=== PATIENT | male | born 1990 | race Caucasian/White ===

== ENCOUNTER 2023-10-02 08:16 | Outpatient (CLI) | payer OTHER, SELFPAY ==
--- NOTE | 2023-10-02 10:30 | W.ANESCHARGE ---
Anesthesia Charges Start Date/Time Anesthesia Start Date: 10/02/23 Anesthesia Start Time: 09:55 Stop Date/Time Anesthesia Stop Date: 10/02/23 Anesthesia Stop Time: 10:28
--- NOTE | 2023-10-02 11:20 | W.ANESCHARGE ---
Anesthesia Charges Start Date/Time Anesthesia Start Date: 10/02/23 Anesthesia Start Time: 09:55 Stop Date/Time Anesthesia Stop Date: 10/02/23 Anesthesia Stop Time: 10:28
== END 2023-10-02 08:17 | disposition home or self-care (01) ==
LOC: OP CLINIC 08:17
PROVIDERS: PCP Family Medicine; Visit Provider Surgery
DX: Z12.11 Encounter for screening for malignant neoplasm of colon (principal); K63.5 Polyp of colon; Z83.719 Family history of colon polyps, unspecified
CPT/HCPCS: 00811; 45385; 88305; J2704

== ENCOUNTER 2024-03-19 05:32 | Emergency (ER) | payer OTHER, SELFPAY ==
[2024-03-19 05:39] VITALS: BP 129/81; PULSE 76; RESP 18; TEMP 36.6; O2SAT 100; BMI 25.8
--- NOTE | 2024-03-19 06:00 | ED.EPISTAXIS ---
History of Present Illness General Date Seen: 03/19/24 Chief Complaint: Epistaxis/Nosebleed Stated Complaint: Nose bleed post surgery Time Seen by Provider: 03/19/24 05:46 Source: patient Mode of arrival: ambulatory Limitations: no limitations History of Present Illness HPI Narrative: Patient is a 33-year-old male who underwent septoplasty by Dr. Gus Santiago on 03/16/2024. He was told that after 24 hours he can begin doing a sinus rinse which he did this afternoon. His congestion seemed better for the remainder of the day he went to bed without difficulty. He woke at 3:00 a.m. with some bleeding out the right nostril around his splint. On this persisted for about 3 hours a came into the emergency department after speaking to the [facility] line. 90% on the blood is coming out anteriorly but there is a small amount going down the back of his throat. The bleeding has not been perfuse. Related Data Home Medications ?Medication ?Instructions ?Recorded ?Confirmed No Known Home Medications 02/26/24 02/26/24 Allergies Allergy/AdvReac Type Severity Reaction Status Date / Time Penicillins Allergy Unknown Unknown Verified 02/26/24 14:16 Review of Systems Narrative: Review of systems is outlined above otherwise noted to be negative. [facility] Medical History (Updated 03/19/24 @ 07:09 by Antwon Murray MD) Plantar fasciitis, bilateral ?M72.2 - Plantar fascial fibromatosis (ICD-10) Depression ?F32.A - Depression, unspecified (ICD-10) History of Lyme disease (2018) ?Z86.19 - Personal history of other infectious and parasitic diseases (ICD-10) Surgical History (Updated 03/19/24 @ 05:49 by Antwon Murray MD) Hx of nasal septoplasty ?Z98.890 - Other specified postprocedural states (ICD-10) Hx of appendectomy ?Z90.49 - Acquired absence of other specified parts of digestive tract (ICD-10) Family History (Updated 08/07/23 @ 10:55 by Nu Dunn) Other Family history of colonic polyps Social History (Updated 03/19/24 @ 05:50 by Antwon Murray MD) Narrative: , 1 kid What is your current living situation?: I presently have a place to live Problems where you live: no known problems In the past 12 months, utilities in danger of being shut off: no In past 12 months, lack of transportation kept you from medical appts, meetings, work, or getting things needed for daily living: no In the past 12 mos, have been you worried that your food would run out before you had money to buy more?: never true In the past 12 mos, the food you bought just didn't last and you didn't have money to buy more?: never true Smoking Status: Never smoker Do you use any of these nicotine containing products: None Second hand tobacco smoke exposure: No How often do you have a drink containing alcohol: monthly or less How often do you have six or more drinks on one occasion: Never AUDIT-C Alcohol total score: 1 Non-prescribed substance use: denies use How often does anyone, including family, friends and others, physically hurt you: never How often does anyone, including family, friends and others, insult or talk down to you: never How often does anyone, including family, friends and others, threaten you with harm: never How often does anyone, including family, friends and others, scream or curse at you: never Little interest or pleasure in doing things: not at all Feeling down, depressed, or hopeless: not at all service: No Exam Narrative: Exam Narrative: Vitals noted. HEENT: Conjunctiva clear. Tympanic membranes are pearly white bilaterally. He has a nasal splint in place on the right side. There is dried blood and clot present with a slow steady trickle of blood from that side. No bleeding from the left side. Posterior pharynx is clear without erythema or exudate. No bleeding down the back of the throat. Neck is supple without adenopathy. Lungs: Clear to auscultation in all meza. No wheezes, rales, rhonchi. Heart: Regular rate and rhythm without murmur. Extremities: No cyanosis or edema. Good distal pulses. Skin: No abnormalities noted of the exposed skin. Neurologic: Awake, alert, fully oriented. Neurologic exam is nonfocal. Const: Vital Signs, click to edit/add: Vital Signs - 24 hr 03/19/ 05:39 Temperature 97.9 F Pulse Rate [Pulse Oximeter] 76 Respiratory Rate 18 Blood Pressure [Le ft Upper Arm] 129/81 Pulse Oximetry 100 Oxygen Delivery Me thod Room Air Course Course ED Course: Patient seen and examined. He is in no distress. He has continuous bleeding as noted above. We paged the on-call ENT for Dr. Santiago at 6:05 a.m. and received a call back at 7:00 a.m.. A plan was made to have the clinic contact the patient directly to arrange for follow-up this morning. He is comfortable with this plan. Vital Signs Vital signs: Initial Vital Signs Temperature 97.9 F 03/19/24 05:39 Temperature Source Temporal Artery Scan 03/19/24 05:39 Pulse Rate 76 03/19/24 05:39 Pulse Rhythm Regular 03/19/24 05:39 Respiratory Rate 18 03/19/24 05:39 Blood Pressure 129/81 03/19/24 05:39 Blood Pressure Mean 97 03/19/24 05:39 Blood Pressure Position Sitting 03/19/24 05:39 Pulse Oximetry 100 03/19/24 05:39 Oxygen Delivery Method Room Air 03/19/24 05:39 Vital Signs Temperature 97.9 F 03/19/24 05:39 Pulse Rate 76 03/19/24 05:39 Respiratory Rate 18 03/19/24 05:39 Blood Pressure 129/81 03/19/24 05:39 Pulse Oximetry 100 03/19/24 05:39 Oxygen Delivery Method Room Air 03/19/24 05:39 Temperature 97.9 F 03/19/24 05:39 Pulse Rate 76 03/19/24 05:39 Respiratory Rate 18 03/19/24 05:39 Blood Pressure 129/81 03/19/24 05:39 Pulse Oximetry 100 03/19/24 05:39 Oxygen Delivery Method Room Air 03/19/24 05:39 Discharge Plan Discharge Clinical Impression: Epistaxis Patient Disposition: Home, Self-Care Condition: Stable Additional Instructions: Follow-up with ENT this morning as arranged. The ENT clinic will be calling you directly. No further sinus rinse until seen by ENT. Prescriptions: No Action No Known Home Medications Follow Up/Referrals: Vini Barnes MD [Primary Care Provider] - Stand Alone Forms: MyHealth Info Instructions
--- NOTE | 2024-03-19 06:14 | PC.NURSE ---
Replaced mustache dressing, pt has saturated one dressing since being in ED. Pt c/o feeling a little woozy, c/o pressure in right nare.
--- OUTSIDE RECORDS SUMMARY | 2024-03-19 06:44 | XMS_ITS | Encounter Summary ---
Author Organization [facility] Address [address] [place] [id number] Care Team Providers Care Surgical Instruments Inspector Name Role Phone Unavailable Primary Care Provider Unavailabl e Reason for Visit * Procedure/Equipment (Routine) - Incomplete Specialty Diagnoses / Procedures Referred By Regina t Referred To Contact Diagnoses Acquired deflected nasal septum Acquired deformity of nose Nasal obstruction Procedures Case Request OR - ENT Surgery: SEPTORHINOPLASTY Calli Wilson, JOHNNY [address] [place] [address] Referral ID Status Reason Start Date Expiration Date V isits Requested Visits Authorized [id number] Incomplete 01/14/2024 04/14/2025 1 1 Encounter Details Date Type Department Care Team (Late st Contact Info) Description 03/16/2024 7:20 AM CDT - 03/16/2024 11:45 AM CDT Surgery [facility] [address] [place], [place] [id number] Mayank Santiago MD [address] [place] [address] SEPTORHINOPLASTY Social History Tobacco Use Types Packs/Day Years Used Date Smoking Tobacco: Never Smokeless Tobacco: Never Sex and Gender Information Value Date Recorded Sex Assigned at Not on file Gender Identity Not on file Sexual Orientation Not on file documented as of this encounter Last Filed Vital Signs Vital Sign Reading Time Taken Comments Blood Pressure 118/78 03/16/2024 5:40 AM CDT Pulse 64 03/16/2024 5:40 AM CDT Temperature 36.5 ??C (97.7 ??F) 03/16/2024 5:40 AM CD T Respiratory Rate 18 03/16/2024 5:40 AM CDT Oxygen Saturation 97% 03/16/2024 5:40 AM CDT Inhaled Oxygen Concentration - - Weight 83.1 kg (183 lb 3.2 oz) 03/16/2024 6:05 A M CDT Height - - Body Mass Index 25.55 01/13/2024 3:25 PM CDT documented in this encounter Discharge Instructions * Discharge Instructions* Stephen Hennessy RN - 03/16/2024 7:42 AM CDT CONTACT INFORMATION If it is after hours call the Careline at [phone]. [facility]: Please contact your clinic during regular business hours or in case of an Emergency dial 911. ENT Clinic, , ANESTHESIA Today you received General Sedation: Rest in bed the day of surgery, then advance to normal activity the next day. Let's talk about what to expect after receiving anesthesia. After anesthesia, reactions are slow and some patients may become lightheaded or dizzy. The following safety precautions are recommended: Don't drink alcoholic beverages. Don't use any other drugs than those ordered by your physician. Don't drive a car or any other vehicle. Don't work with machinery or power tools. Be careful walking. Be extra careful walking up and down stairs. DANGER SIGNALS I should call my clinic if I experience any of the following: Temperature higher than 101 degrees Fahrenheit Redness that has spread Persistent bleeding Green/yellow/infected, foul smelling drainage from incision site Reaction to new medications Severe pain Swelling * Discharge Instr - Non RX Meds* Dorian Andersen RN - 03/16/2024 1:30 PM CDT You may repeat tylenol at 7:20pm documented in this encounter Medications at Time of Discharge Medication Sig Dispensed Refills Start Date End Date clindamycin (CLEOCIN) 300 MG capsule Take 1 Capsule (300 mg) by mouth three times a day. 30 Capsule 03/16/2024 oxyCODONE (ROXICODONE) 5 MG immediate release tablet Take 1 Tablet (5 mg) by mouth every 4 hours as needed for Pain for up to 15 doses. 15 Tablet 03/16/2024 documented as of this encounter Progress Notes * Dorian Andersen RN - 03/16/2024 5:32 AM CDT I completed a full assessment and assessments as ordered and per policy on this patient during my work shift. Reassessments completed during my work shift are unchanged unless documented. documented in this encounter Procedure Notes * Brian Clemens MD - 03/16/2024 5:32 AM CDT [facility] Brief Operative Progress Note Surgery Date: 03/16/2024 Surgeons and Role: * Mayank Santiago MD - Primary Visitor: Other - See Comment - brian clemens - resident - Comments: ent resident Pre-op Diagnosis: * Acquired deflected 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.2] * 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] * Nasal obstruction [J34.89] Post-op Diagnosis: * Acquired deflected 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.2] * 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] * Nasal obstruction [J34.89] Procedures with associated lateralities: Procedure(s) (LRB): SEPTORHINOPLASTY (N/A) EBL: 20cc Specimens: * No specimens in log * Complications / Findings: * Mayank Santiago MD - 03/16/2024 12:00 AM CDT NAME: DANIEL MAYNARD CSN: [id number] OPERATIVE REPORT DATE OF SURGERY: 03/16/2024 : 1990 SURGEON: MAYANK SANTIAGO MD PREOPERATIVE DIAGNOSIS: Posttraumatic nasal and septal deformities with nasal airway obstruction inareas of secondary compensatory turbinate hypertrophy. POSTOPERATIVE DIAGNOSIS: Posttraumatic nasal and septal deformities with nasal airway obstruction in areas of secondary compensatory turbinate hypertrophy. OPERATIVE PROCEDURE: Complex open septorhinoplasty with right spreading splinting graft, septal extension graft, crushed cartilage radix graft, crushed cartilage tip graft, bilateral medial and lateral osteotomies with right intermediate osteotomy, bilateral inferior turbinate cautery, and outfracture. INDICATIONS: Patient had fallen as a child and had an unrepaired nasal fracture and he had chronic fixed nasal obstruction. Medical therapy had failed, which was not surprising given the magnitude ofhis deformities. In the accident, the nose had been fractured and the septum multiply fractured. The vault of the nose was deviated to the left with collapse and a fracture line not only in the nasofacial sulcus on the dorsum, but an intermediate fracture on the right as well. The caudal septum wasmarkedly deflected to the left with the septum in contact with the undersurface of the left mid vault and the head of the inferior turbinate. There was enough deformity that it was impossible to see the posterior recesses of the nose, but due to the septal deformity on the right side, the internal nasal valve was collapsed by the upper lateral cartilage following in along with the nasal bone. There was a large right inferior septal spur as well. The turbinates had areas of hypertrophy in areas where the septum bowed away from the turbinates. This was true anteriorly on the right and posteriorly on the left. The risks and benefits of surgery had been discussed and the patient wished to proceed. Special circumstances, this case is unusual in that septorhinoplasty does not normally include septal extension graft to control the posture of the nasal tip and a spreading splinting graft on theright side to correct some of the severe dorsal nasal septal deviation. These grafts required additional time, skill, and complex healing. TECHNIQUE: General anesthesia was established with an endotracheal tube in place. 10 mL of 2% Xylocaine with 1:100,000 epinephrine were injected as a field block about the nose. 4% cotton pledgets were placed intranasally. Ointment was placed in each conjunctival fornix and Tegaderm applied to the lids. 600 mg of Cleocin had been given intravenously. The patient was then prepped and draped. The nose was approached with a standard external rhinoplasty incision and combined marginal incisions with a chevron incision on the columella. Soft tissue was elevated just superficial to the perichondrium of the lower lateral cartilage complex. The intermediate crura domes and lateral crura were exposed. Dissection was carried out in the supraperichondrial plane over the mid vault and then subperiosteal plane over the anterior 50% of the bony vault. There were irregularities in the bony vault from the previous fracture. Traction was then applied to the intermediate crura and interdomal ligaments were divided. The caudal septum was exposed. Bilateral anterior tunnels were created. Each inferior turbinate was then treated with 3 passes of intramucosal bipolar cautery on setting of 15 and the turbinates were then outfractured with a Boies elevator. The upper lateral cartilages were released from the septum. On the right side, a fading right medial osteotomy was carried out followed by a posta ge stamp inside-out right intermediate osteotomy and then a right lateral internal osteotomy with aguarded osteotome. This mobilized the right nasal sidewall. A generous 12 mm dorsal and caudal strut of septum was preserved. Cartilage posteriorly was harvested including the spur on the right. Bony irregularities were trimmed as well. Because of the fracture and the spur on the right side after resection of the irregularities in order to provide adequate stability of the posterior septal angle,two #4-0 PDS sutures were placed securing the posterior septal angle of the septal cartilage to theperiosteum of the anterior nasal spine. This provided a very stable dorsal and caudal cartilaginousframe. A medial osteotomy was then performed to place the bony septum in the midline and a left fading medial osteotomy was performed. This was then followed by an internal lateral left osteotomy, mobilizing the left nasal sidewall, closing the open roof, and positioning the vault in the midline. The radix area still had a tendency to drift to the left, and therefore, a percutaneous 2 mm osteotomy was carried out at the radix with division of the dorsal nasal septum more formally at the nasal radix. The dorsum now rested comfortably in the midline with little tendency for deviation. Cartilagegrafts were then fashioned and a 37 mm x 5 mm x 2 mm splinting high risk case manager graft was carved and placedon the right side of the septum and secured with multiple simple and mattress 5-0 PDS sutures. Clocking sutures of 5-0 PDS were then placed through the dorsal septum through the splinting high risk case manager graft and engaged the dorsal edges of the upper lateral cartilage slightly overcorrecting the dorsal line. Left upper lateral cartilage dorsal edge was then reattached to the dorsal septum with 5-0 PDS sutures. A septal extension graft measuring 28 mm x 7 mm was placed on the left side of the septum and stabilized with mattress and simple 5-0 PDS sutures. This extended the anterior septal angle appro ximately 6 mm inferiorly and 5 mm anteriorly. An interdomal suture was then placed, traction applied to the tip complex and the intermediate and medial crura were fixated to the septal extension graft with through and through 4-0 chromic sutures. Mucosa of the septum was then quilted with a running4-0 Rapide suture. An ovoid 6 x 7 mm crushed cartilage tip graft was placed and temporarily stabilized with 30-gauge needle. It was then secured with interrupted 6-0 Monocryl sutures. A graft was placed to provide appropriate tip contour and to minimize risk of a bossa formation postoperatively. Approximately an 8 mm x 7 mm crushed cartilage graft was placed over the bony vault in the radix to mask irregularities from his previous fractures. The right nasal bone with a triple osteotomy had someinstability, and therefore, a segment of Merocel folded measuring approximately 18 mm x 5 mm was placed. It was coated with Bactroban and secured with 5-0 PDS sutures at its upper and lower ends and the sutures were brought out percutaneously through the nasal dorsum and then later Steri- Strips to the skin to provide stability. Transcolumellar incision was closed with 6-0 Monocryl. Vestibular lining was closed with 4-0 chromic sutures. Dailey splints coated with Bactroban were placed intranasally and stabilized with a transseptal 3-0 nylon suture. Mastisol, Steri-Strips, and Aquaplast were applied to the nasal dorsum. Merocel was injected with 3 mL of 1% xylocaine with 1:100,000 epinephrine.The nose now had a symmetric posture. Aquaplast was applied. 5 mL of 0.5% Marcaine with 1:100,000 epinephrine was injected as a field block about the nose for postoperative pain relief. An oral airway was then placed and the pharynx suctioned and a suction catheter placed into the stomach to removeeven gastric contents with bile. ESTIMATED BLOOD LOSS: 50 cc. CO-SURGEON: Dr. Brian Clemens. MAYANK SANTIAGO MD PAH/AQS /[id number] documented in this encounter Miscellaneous Notes * OR Nursing - Leticia aHnley RN - 03/16/2024 5:32 AM CDT Bladder scan pt at 1202 for >788ml. Attempted to straight cath patient, unable to insert catheter despite repositioning. Upon removing catheter blood was noted inside it. JLUIS [place] states pt will be able to use urinal in PACU. PACU notified. Leticia Hanley RN 03/16/2024, 1:27 PM documented in this encounter Plan of Treatment Upcoming Encounters Date Type Department Care Team (Late st Contact Info) Description 03/23/2024 3:15 PM CDT Appointment [facility] [address] [place] [address]. [place] [address] Mayank Santiago MD [address] [place] [phone] documented as of this encounter Procedures Procedure Name Priority Date/Time Associated Diagnosis Comments SEPTORHINOPLASTY 03/16/2024 7:14 AM CDT Acquired deflected nasal septum Acquired deformity of nose Nasal obstruction documented in this encounter Visit Diagnoses Diagnosis Pain- Primary Generalized pain Acquired deflected nasal septum Deviated nasal septum Acquired deformity of nose Nasal obstruction Other diseases of nasal cavity and sinuses Acquired deflected nasal septum Deviated nasal septum Acquired deformity of nose Nasal obstruction Other diseases of nasal cavity and sinuses documented in this encounter Admitting Diagnoses Diagnosis Acquired deflected nasal septum Deviated nasal septum Acquired deformity of nose Nasal obstruction Other diseases of nasal cavity and sinuses documented in this encounter Administered Medications Inactive Administered Medications - up to 3 most recent administrations Medication Order MAR Action Action Date Dose Rate Site BUPivacaine-EPINEPHrine PF (SENSORCAINE) 0.5% -[id number] injection ONCE PRN, Starting on Fri03/16/24 at 1209, Until Fri03/16/24 at 1552, Intra-op Given 03/16/2024 12:09 PM CDT 5 mL cocaine 40 MG/ML topical solution ONCE PRN, Starting on Fri03/16/24 at 0800, Intra-op Given 03/16/2024 8:00 AM CDT 160 mg Other (Comment) gentamicin (GARAMYCIN) 80 mg in sodium chloride for irrigation 500 mL Irrigation ONCE PRN, Starting on Fri03/16/24 at 0803, Intra-op Given 03/16/2024 8:03 AM CDT 104 mL Other (Comment) hydrOXYzine pamoate (VISTARIL) capsule 25-50 mg 25-50 mg, Oral, ONCE PRN, Other, Pain, Starting on Fri03/16/24 at 0742, Until Fri03/16/24 at 1318, For 1 dose, May be used with other medications as adjunct for pain. 25 mg PO once PRN based on patient pain scale rating for mild to moderate pain (1 to 5) 50 mg PO once PRN based on patient pain scale rating for moderate to severe pain (6 to 10), PACU (only) Given 03/16/2024 1:18 PM CDT 25 mg lactated ringers infusion Intravenous, at 30 mL/hr, CONTINUOUS, Starting on Fri03/16/24 at 0600, Pre-op Started 03/16/2024 10:19 AM CDT Restarted 03/16/2024 7:22 AM CDT Started 03/16/2024 6:14 AM CDT 30 mL/hr lidocaine-epinephrine 1 %-1:[id number] injection ONCE PRN, Starting on Fri03/16/24 at 1005, Until Fri03/16/24 at 1552, Intra-op Given 03/16/2024 11:47 AM CDT 3 mL Other (Comment) Given 03/16/2024 10:05 AM CDT 4 mL O ther (Comment) lidocaine-epinephrine 2 %-1:[id number] injection ONCE PRN, Starting on Fri03/16/24 at 0801, Until Fri03/16/24 at 1552, Intra-op Given 03/16/2024 8:01 AM CDT 10.2 mL Other (Comment) mupirocin (BACTROBAN) 2 % ointment ONCE PRN, Starting on Fri03/16/24 at 1058, Intra-op Given 03/16/2024 10:58 AM CDT 1 Inch Other (Comment) oxyCODONE-acetaminophen (PERCOCET) 5-325 MG per tablet 1-2 Tablet 1-2 Tablet, Oral, ONCE PRN, Pain, Starting on Fri03/16/24 at 0742, Until Fri03/16/24 at 1318, For 1 dose, Do not give within 4 hours of other acetaminophen containing products. If multiple oral opioids are ordered, please consult provider for order of use. One tablet PO once PRN based on patient pain scale rating for mild to moderate pain (1 to 5) Two tablets PO once PRN based on patient pain scale rating for moderate to severe pain (6 to 10), PACU (only) Given 03/16/2024 1:18 PM CDT 1 Tablet oxymetazoline (AFRIN) 0.05 % nasal spray ONCE PRN, Starting on Fri03/16/24 at 0936, Until Fri03/16/24 at 1552, Intra-op Given 03/16/2024 9:36 AM CDT 30 mL Other (Comment) documented in this encounter
--- OUTSIDE RECORDS SUMMARY | 2024-03-19 06:44 | XMS_ITS | Encounter Summary ---
Author Organization [facility] Address [address], [place] [address] Care Team Providers Care Aerospace Physiological Technician Name Role Phone Unavailable Primary Care Provider Unavailabl e Encounter Details Date Type Department Care Team ([facility] st Contact Info) Description 03/16/2024 7:22 AM CDT Anesthesia Event [facility] [address] [place], [place] [id number] Santino Morton MD [address] [place] [address] Ryland Puente MD [address] [place] [address] Anesthesia Record Procedure Summary Procedure Name Responsible Anesthesiologist Anesthesia Start Time Anesthesia Stop Time SEPTORHINOPLASTY Santino Morton MD 03/16/24 0722 0 03/16/24 1225 Events Date Time Event Comment 03/16/2024 0722 0722 An Start 0724 An Start Data 0729 An Induction 0732 An Intubation 0740 An Local Anesthetic By Surge on 1147 An Local Anesthetic By Surge on 1155 An Local Anesthetic By Surge on 1221 An Extubation Purposeful mov ement with spontaneous respirations and adequate air exchange. Suctioned and ETT removed. Transferred with oxygen to recovery. 1221 An Oxygen Mask Spontaneous r espirations with adequate air exchange. 1221 an stop data 1225 Care Handoff Note I discusse d with the receiving nurse and we: 1) Identified the patient, crooks family member(s) or patient surrogate 2) Identified the responsible practitioner 3) Reviewed the pertinent medical history 4) Discussed the surgical/procedure course 5) Reviewed intra-op anesthesia management and issues during anesthesia 6) Set expectations for the post-procedure period 7) Allowed opportunity for questions and acknowledgement of understanding of report Electronically signed by David Guillory APRN, CRNA [address] [facility] Name Total midazolam 2 mg/2 mL injection (aka VERSE D) 2 mg FENTanyl injection (aka SUBLIMAZE) 2 mL lidocaine 1% PF injection aka (XYLOCAINE ) 30 mg propofol 10 mg/mL for procedural sedatio n (aka diPRIvan) 200 mg propofol 10 mg/mL for procedural sedatio n (aka diPRIvan) 3,439.66 mg rocuronium injection (aka ZEMURON) 100 m g ondansetron injection (aka ZOFRAN) 4 mg dexamethasone 4 mg/mL injection (aka DEC ADRON) 4 mg carboxymethylcellulose 1% eye drops (aka CELLUVISC) 2 Drop clindamycin (CLEOCIN) 600 mg in dextrose 5% 50 mL premade IVPB 600 mg HYDROmorphone 1 mg/mL injection (DILAUDI D) 1 mg sugammadex injection 200mg/2mL (BRIDION) 200 mg lactated ringers infusion 1,300 mL * Agents Name O2 N2O Air * Blood No blood administrations on file. Lines, Drains, and Airways Type Details Placement Removal Peripheral IV Placement Date: 03/16/24; Placement Time: 06; Pre-existing: No; Inserted by?: RN; Size (Gauge): 20 G; Orientation: Left; Site Prep: ChloraPrep; Local Anesthetic: None; Insertion attempts: 1; Blood draw with insertion?: no; Patient Tolerance: Tolerated well; Removal Date: 03/16/24; Removal Time: 1345; Removal Reason: Per Protocol; Catheter Tip: Intact 03/16/24 0614 by Jennifer Man RN 03/16/24 1345 by Dorian Andersen, RN ETT Placement Date: 03/16/24; Placement Time: 0732; Placed By: JLUIS; Induction Type: Pre-O2, IV; Masking: Easy; ETT Type: Oral DAVID ETT; Orientation: Center; Size (mm): 8.0; Depth Secured (cm): 22 cm; Cuffed: Cuffed; Cuff Volume: 6 mL; Intubation Method: DL; Cormack_Lehane Glottic Grade: Grade 1; Glottic View: Cords Open, Cords Clear; Blade: Yusuf; Blade Size: 2; Insertion attempts: 1; Difficulty: Atraumatic, Easy; Adjunct Equipment: Stylet; Placement Verification: BBSE, Positive EtCO2, auscultation, capnometry; Teeth and Lips Unchanged: Unchanged; Emergence: Following commands, Opening eyes, Spontaneous respirations, Adequate air exchange; Suctioned: Oropharnyx, Stomach; Removal Date: 03/16/24; Removal Time: 122; Extubation By: ALUMINUM MOLDER; Transferred with Oxygen: Yes 03/16/24 0732 by David Guillory APRN, CRNA 03/16/24 1221 by David Guillory APRN, CRNA Incision/Surgical Site 03/16/24; 0805; N o; Nose; 03/16/24; 1345 03/16/24 0805 by Leticia Hanley RN 03/16/24 1345 by Dorian Andersen RN documented in this encounter Social History Tobacco Use Types Packs/Day Years Used Date Smoking Tobacco: Never Smokeless Tobacco: Never Sex and Gender Information Value Date Recorded Sex Assigned at Not on file Gender Identity Not on file Sexual Orientation Not on file documented as of this encounter Miscellaneous Notes * Anesthesia Postprocedure Evaluation - Santino Morton MD - 03/16/2024 12:32 PM CDT [facility] Anesthesia Post-op Note Patient: Srinivas Spear Post-Op Diagnosis: Pre-Op Diagnosis Codes: * Acquired deflected 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.2] * 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] * Nasal obstruction [J34.89] Procedure Performed: Procedure(s): SEPTORHINOPLASTY - Wound Class: 2 CLEAN-CONTAMINATED Anesthesia Type: General Post-op vital signs: Vitals Value Taken Time BP 114/67 03/16/24 1225 Temp 97.3 ??F (36.3 ??C) 03/16/24 1225 Pulse 85 03/16/24 1225 Resp 12 03/16/24 1225 SpO2 97 % 03/16/24 1225 Pain Score: Preferred Pain Scale: FACES (Brambila-Ross FACES Pain Rating Scale) (0- 10) Pain Rating: Rest: 0 (0-10) Pain Rating: Activity: 0 Post-op assessment: Patient location: PACU Airway Status: Patent Cardiovascular function: Satisfactory Hydration status: Satisfactory PONV: None Level of Consciousness: Awake Fully Participates Postop Assessment: Patient tolerated procedure well. Electronically signed by: Santino Morton MD 03/16/2024 12:32 PM * Anesthesia Preprocedure Evaluation - Santino Morton MD - 03/16/2024 6:17 AM CDT [facility] Anesthesia Pre-op Evaluation Procedure: SEPTORHINOPLASTY, Bilateral HPI: 33 y.o. old male. 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 Patient Active Problem List Diagnosis Acquired deflected nasal septum Acquired deformity of nose Nasal obstruction No past surgical history on file. No current outpatient medications on file as of 01/14/2024. Facility-Administered Medications as of 01/14/2024 Medication Dose Route Frequency ceFAZolin (ANCEF) 2 g in sodium chloride 0.9 % 50 mL IVPB ADS 2 g Intravenous Once (Non-Scheduled) lactated ringers infusion Intravenous Continuous Labs: No results found for: SODIUM, K, CHLORIDE, CO2, BUN, CREATININE, GLUCOSE No results found for: WBC, HGB, HCT, PLTS No results found for: INR Blood Bank: No results found for: ABO, ABSCR EKG: No results found for this or any previous visit. Physical Exam: BP 118/78 Pulse 64 Temp 97.7 ??F (36.5 ??C) (Temporal Artery) Resp 18 SpO2 97% Assessment/Plan: Review of Systems Patient does not have GERD. Patient is not a current smoker. The patient denies alcohol use. Patient denies any recent URI. History of PONV: No. History of motion sickness: No. Patient denies any personal or family history of anesthesia complications. NPO Status: Acceptable. Exam Mental Status: Alert and oriented. Mallampati score: II (Two). Mouth opening: Normal Thyromental Distance: > 3 finger breadths and Normal Neck Extension: Full Neck Circumference > 40 cm?: No Previous airway assessment: No prior intubations. Current airway assessment:Normal Dentition: Age appropriate. Cardiac Exam: Regular rate and rhythm. Respiratory Exam: Breath sounds clear to auscultation Assessment ASA Status: 2 . Plan Anesthesia type: General and ETT Induction: Propofol Maintenance: TIVA Postoperative pain management: Plan for postoperative opioid use PONV Risk Score Adult: 2 PONV Prophylaxis (planned): Ondansetron and Decadron Anesthetic plan, risks, benefits and alternatives discussed with the patient who agrees to the anesthesia treatment plan. The patient and/or their customer account representative were notified about the potential risks of damage to the lips, teeth, dental devices, mouth and airway. H&P Reviewed and Patient examined, no change observed IV access Antibiotics per surgery Electronically signed by: Santino Morton MD 03/16/2024 6:17 AM documented in this encounter Plan of Treatment Upcoming Encounters Date Type Department Care Team (Late st Contact Info) Description 03/23/2024 3:15 PM CDT Appointment [facility] [address] [place] [address]. [place] [address] Gus Santiago MD [address] [place] [phone] documented as of this encounter Visit Diagnoses Not on filedocumented in this encounter Administered Medications Inactive Administered Medications - up to 3 most recent administrations Medication Order MAR Action Action Date Dose Rate Site carboxymethylcellulose PF (CELLUVISC) 1 % ophthalmic gel Both Eyes, Starting on Fri03/16/24 at 0730, Until Fri03/16/24 at 1225 Given 03/16/2024 7:30 AM CDT 2 Drops clindamycin (CLEOCIN) 600 mg in dextrose 5% 50 mL premade IVPB 600 mg, Intravenous, Administer over 30 Minutes, ONCE, On Fri03/16/24 at 0715, For 1 dose, Pre-op Given 03/16/2024 7:27 AM CDT 600 mg dexAMETHasone (DECADRON) injection Intravenous, Starting on Fri03/16/24 at 0737, Until Fri03/16/24 at 1225 Given 03/16/2024 7:37 AM CDT 4 mg fentaNYL (SUBLIMAZE) injection Intravenous, Starting on Fri03/16/24 at 0728, Until Fri03/16/24 at 1225 Given 03/16/2024 7:28 AM CDT 2 mL HYDROmorphone (DILAUDID) injection Intravenous, Starting on Fri03/16/24 at 0743, Until Fri03/16/24 at 1225 Given 03/16/2024 9:44 AM CDT 0.5 mg Given 03/16/2024 7:43 AM CDT 0.5 mg lactated ringers infusion Intravenous, at 30 mL/hr, CONTINUOUS, Starting on Fri03/16/24 at 0600, Pre-op Started 03/16/2024 10:19 AM CDT Restarted 03/16/2024 7:22 AM CDT Started 03/16/2024 6:14 AM CDT 30 mL/hr lidocaine PF (XYLOCAINE) 1 % injection Intravenous, Starting on Fri03/16/24 at 0729 Given 03/16/2024 7:29 AM CDT 30 mg midazolam (VERSED) injection Intravenous, Starting on Fri03/16/24 at 0723, Until Fri03/16/24 at 1225 Given 03/16/2024 7:23 AM CDT 2 mg ondansetron (ZOFRAN) injection Intravenous, Starting on Fri03/16/24 at 1121, Until Fri03/16/24 at 1225 Given 03/16/2024 11:21 AM CDT 4 mg propofol (DIPRIVAN) 10 mg/mL injection Intravenous, Starting on Fri03/16/24 at 0729, Until Fri03/16/24 at 1225 Given 03/16/2024 7:29 AM CDT 200 mg propofol (DIPRIVAN) 10 mg/mL injection Intravenous, Starting on Fri03/16/24 at 0729, Until Fri03/16/24 at 1225 Rate/Dose Change 03/16/2024 11:36 AM CDT 120 mcg/kg/min 56.88 mL/hr Rate/Dose Change 03/16/2024 11:08 AM CDT 150 mcg/kg/min 71 .1 mL/hr Rate/Dose Change 03/16/2024 9:44 AM CDT 160 mcg/kg/min 75. 84 mL/hr rocuronium (ZEMURON) injection Intravenous, Starting on Fri03/16/24 at 0730, Until Fri03/16/24 at 1225 Given 03/16/2024 8:43 AM CDT 30 mg Given 03/16/2024 8:16 AM CDT 20 mg Given 03/16/2024 7:30 AM CDT 50 mg sugammadex (BRIDION) injection Intravenous, Starting on Fri03/16/24 at 1205, Until Fri03/16/24 at 1225 Given 03/16/2024 12:05 PM CDT 200 mg documented in this encounter
--- OUTSIDE RECORDS SUMMARY | 2024-03-19 06:44 | XMS_ITS | Encounter Summary ---
Author Organization [facility] Address [address] [place] [address] Care Team Providers Care Advanced Practice Nurse Name Role Phone Unavailable Primary Care Provider Unavailabl e Reason for Visit * Procedure/Equipment (Routine) - Incomplete Specialty Diagnoses / Procedures Referred By Regina t Referred To Contact Diagnoses Acquired deflected nasal septum Acquired deformity of nose Nasal obstruction Procedures Case Request OR - ENT Surgery: SEPTORHINOPLASTY Calli Wilson, [facility] [address] [place] [address] Referral ID Status Reason Start Date Expiration Date V isits Requested Visits Authorized [id number] Incomplete 01/14/2024 04/14/2025 1 1 Encounter Details Date Type Department Care Team (Latest Contact Info) Description 03/16/2024 5:32 AM CDT - 03/16/2024 1:52 PM CDT Hospital Encounter [facility] [address] [place] [address] Gus Santiago MD [address] [place] [address] Pain (Primary Dx) Discharge Disposition: Home Social History Tobacco Use Types Packs/Day Years Used Date Smoking Tobacco: Never Smokeless Tobacco: Never Sex and Gender Information Value Date Recorded Sex Assigned at Not on file Gender Identity Not on file Sexual Orientation Not on file documented as of this encounter Last Filed Vital Signs Vital Sign Reading Time Taken Comments Blood Pressure 116/71 03/16/2024 1:30 PM CDT Pulse 71 03/16/2024 1:30 PM CDT Temperature 36.9 ??C (98.4 ??F) 03/16/2024 1:02 PM CD T Respiratory Rate 17 03/16/2024 1:30 PM CDT Oxygen Saturation 96% 03/16/2024 1:30 PM CDT Inhaled Oxygen Concentration - - Weight 83.1 kg (183 lb 3.2 oz) 03/16/2024 6:05 A M CDT Height - - Body Mass Index 25.55 01/13/2024 3:25 PM CDT documented in this encounter Discharge Instructions * Discharge Instructions* Stephen Hennessy RN - 03/16/2024 7:42 AM CDT CONTACT INFORMATION If it is after hours call the Careline at [phone]. [facility]: Please contact your clinic [...] Clemens MD - 03/16/2024 5:32 AM CDT [facility] Brief Operative Progress Note Surgery Date: 03/16/2024 Surgeons and Role: * Gus Santiago MD - Primary Visitor: Other - [...] in log * Complications / Findings: * Gus Santiago MD - 03/16/2024 12:00 AM CDT NAME: DANIEL MAYNARD CSN: [id number] OPERATIVE REPORT DATE OF SURGERY: 03/16/2024 : 1990 SURGEON: GUS SANTIAGO MD PREOPERATIVE DIAGNOSIS: Posttraumatic nasal and [...] x 5 mm x 2 mm splinting home care companion graft was carved and placedon the right side of the septum and secured with multiple simple and mattress 5-0 PDS sutures. Clocking sutures of 5-0 PDS were then placed through the dorsal septum through the splinting home care companion graft and engaged the dorsal edges of [...] LOSS: 50 cc. CO-SURGEON: Dr. Brian Clemens. GUS SANTIAGO MD PAH/AQS /[id number] documented in this encounter Miscellaneous Notes * OR Nursing - Leticia Hanley RN - 03/16/2024 5:32 AM CDT Bladder [...] PM CDT Appointment [facility] [address] [place] [address]. [place] [address] Gus Santiago MD [address] [place] [id number] documented as of this encounter Procedures Procedure [...] MAR Action Action Date Dose Rate Site hydrOXYzine pamoate (VISTARIL) capsule 25-50 mg 25-50 [...] Started 03/16/2024 6:14 AM CDT 30 mL/hr oxyCODONE-acetaminophen (PERCOCET) 5-325 MG per tablet 1-2 [...] Given 03/16/2024 1:18 PM CDT 1 Tablet documented in this encounter
--- OUTSIDE RECORDS SUMMARY | 2024-03-19 06:44 | XMS_ITS | Clinical Summary ---
Author Organization [employer] [facility] Address [place], [place] [address] Care Team Providers Care Web User Experience Strategist Name Role Phone Ryland Olmedo MD Primary Care Provider Allergies Active Allergy Reactions Criticality Noted Date Comments Penicillins *Unknown - Childhood Rxn 09/03/2010 Medications No known medications Active Problems Problem Noted Date Diagnosed Date Lyme disease 05/07/2018 Family history of colonic polyps 11/06/2010 Overview: Colonoscopy 10/2010 normal repeat in 5 years Social History Tobacco Use Types Packs/Day Years Used Date Smoking Tobacco: Never Smokeless Tobacco: Never Tobacco Cessation:Counseling Given: Yes Alcohol Use Standard Drinks/Week Comments No 0 (1 standard drink = 0.6 oz pur e alcohol) PHQ-2 Answer Date Recorded PHQ-2 Score 0 12/29/2018 Sex and Gender Information Value Date Recorded Sex Assigned at Male 07/19/2021 11:38 AM CDT Gender Identity Male 07/19/2021 11:38 AM CDT Sexual Orientation Straight 07/19/2021 11 :38 AM CDT Obstetrics History Last Filed Vital Signs Vital Sign Reading Time Taken Comments Blood Pressure 110/60 05/06/2018 8:16 AM CDT Pulse 64 05/06/2018 8:16 AM CDT Temperature 36.6 ??C (97.9 ??F) 05/06/2018 8:16 AM CD T Respiratory Rate 18 04/25/2018 9:13 AM CDT Oxygen Saturation 98% 04/25/2018 9:13 AM CDT Inhaled Oxygen Concentration - - Weight 78.7 kg (173 lb 8 oz) 05/06/2018 8:16 AM CDT Height 177.8 cm (5' 10) 04/25/2018 9:13 AM CDT Body Mass Index 24.89 04/25/2018 9:13 AM CDT Plan of Treatment Health Maintenance Due Date Last Done Comments Tdap 2001 HIV for age 15-65 2005 Hepatitis C screening for ag e 18-79 2008 Tetanus booster 2010 BMI (ht and wt on same day) for age 18+ 04/25/2019 04/25/2018 Depression screening for age 12+ 05/06/2019 05/06/20 18 COVID-19 vaccine series ( season) 2023 Influenza for age 9-49 06/27/2024 Pneumococcal series for age 6-64 Aged Out No longer eligible based on patient's age to complete this topic Care Teams Web User Experience Strategist Relationship Specialty Start Date End Date Ryland Olmedo MD [address] [place] [id number] PCP - General Family Practice 05/06/18
--- OUTSIDE RECORDS SUMMARY | 2024-03-19 06:44 | XMS_ITS | Encounter Summary ---
Author Organization [facility] Address [address], [place] [address] Care Team Providers Care Sugar Sampler Name Role Phone Unavailable Primary Care Provider Unavailabl e Reason for Referral * Procedure/Equipment (Routine) - Incomplete Specialty Diagnoses / Procedures Referred By Regina mcclain Referred To Contact Diagnoses Acquired deflected nasal septum Acquired deformity of nose Nasal obstruction Procedures Case Request OR - ENT Surgery: SEPTORHINOPLASTY Calli Denton PA-C [address] [place] [address] Referral ID Status Reason Start Date Expiration Date V isits Requested Visits Authorized [id number] Incomplete 01/14/2024 04/14/2025 1 1 Reason for Visit * Reason Comments CONSULT Deviated septum * Consult/Transfer Care (Routine) - New Request Specialty Diagnoses / Procedures Referred By Regina mcclain Referred To Contact Otolaryngology Diagnoses Deviated nasal septum Robin Meza MD [address], [place] [address] Mayank Santiago MD [address] [place] [address] Referral ID Status Reason Start Date Expiration Date V isits Requested Visits Authorized [id number] New Request 09/23/2023 12/22/2024 1 1 Encounter Details Date Type Department Care Team (Late st Contact Info) Description 01/13/2024 3:15 PM CDT Office Visit [facility] Otolaryngology 401 [facility]. [place], [place] [id number] Mayank Santiago MD [address] [place], [place] [id number] Acquired deflected nasal septum (Primary Dx); Acquired deformity of nose; Nasal obstruction Social History Tobacco Use Types Packs/Day Years Used Date Smoking Tobacco: Never Smokeless Tobacco: Never Tobacco Cessation:Counseling Given: Not Answered Sex and Gender Information Value Date Recorded Sex Assigned at Not on file Gender Identity Not on file Sexual Orientation Not on file documented as of this encounter Last Filed Vital Signs Vital Sign Reading Time Taken Comments Blood Pressure - - Pulse - - Temperature - - Respiratory Rate - - Oxygen Saturation - - Inhaled Oxygen Concentration - - Weight 79.4 kg (175 lb) 01/13/2024 3:25 PM CDT Height 180.3 cm (5' 11) 01/13/2024 3:25 PM CDT Body Mass Index 24.41 01/13/2024 3:25 PM CDT documented in this encounter Patient Instructions * Patient Instructions* Antwon Bueno MA - 01/13/2024 3:15 PM CDT You will be scheduled for a Septorhinoplasty. Please note our staff will work to obtain prior authorization for your procedure. We recommend you work with your insurance for your plans benefits, policies, exclusions, and limitations. A Virtual Reality Specialist will contact you once a determination has been received from your health plan - please allow up to 4-6 weeks for processing. Prior to your surgery, you will need to schedule a pre-op exam with your primary physician. This exam needs to be schedule within 30 days prior to your surgery date and will ensure you are medically ready to have your surgery and anesthesia. This exam will also ensure any lab work is current and gives us enough time if labs are abnormal to reschedule surgery if needed. If your Primary Physician is located outside of our [facility] system, please have your PrimaryPhysician fax your Pre-operative History and Physical form to our [facility] as soon as possible. [facility] Fax#: [phone] [facility] [address] [place] [address] [facility] [place] Fax#: [phone] Please consult with your Primary Physician to determine which prescribed medications and herbal supplements: Are safe for you to stop When to stop them When you can resume them If your physical condition changes, such as you get a cold, fever or have a significant change in the condition for which you are having surgery, please contact us as soon as possible at [phone] the hours of 8:00am and 5:00pm. The Same Day Surgery Nurses will call you 1-3 days prior to surgery to confirm what time you shouldarrive. If they do not reach you, please call if your surgery is at [facility] or for the [facility] [place]. Young Children and adults should not eat or drink after midnight the night before your surgery. This includes chewing gum. Please do not use any type of hair products prior to your surgical procedure. If you are wearing a hair product when you arrive for your procedure, your hair will be washed prior to beginning the procedure. All beauty enhancement products such as eyelash, eyebrow or hair extensions that are glued in place must be removed prior to surgery. For infants under that age of 6 months, consult with the Surgery Nurse. If you are having an outpatient procedure, please have someone to drive you home. If you are staying in the hospital, please have someone to drive you home when you are discharged. If your insurance requires a copay for out patient surgery you will be asked for this upon arrival. Any Questions, feel free to call our office at . CONTACT INFORMATION FOR POST-OPERATIVE CARE ENT Clinic, between the hours of 8am-5pm, Friday through Friday. After hours and on weekends, call the [facility] at [phone]. PAIN MEDICATION POLICY The Department of Otolaryngology recognizes that adequate pain management is an important part of your surgical and recovery process. It is therefore, important that you are aware of our policies regarding dispensing prescriptive pain medications. This department does not prescribe pain medications in anticipation of surgery. Your primary care physician should manage your pain medication needs until surgery. Following surgery, you will be discharged with an appropriate prescription for pain medication depending on the severity of your surgery or injury. This prescription should last until your first postoperative appointment. Our Surgeons will manage your postoperative pain for a period of six weeks following your date of surgery or injury. You will then be asked to follow up with your primary care physician for further medical management. If you are a patient with an open wound the six-week period will begin when the wound is closed. REFILL POLICY FOR PRESCRIPTIONS: Pain management will be addressed during your physician visit. Should you need a refill between office visits, you will need to allow twenty-four hours for this to occur. Please call during clinic hours only and before noon on Fridays. Your medical chart is not available for review during the evening or weekend. We do not refill prescriptions over the weekend. Under no circumstances will your prescription be refilled on a walk in basis in the clinic or during weekend hours. Driving with opioids: It is ALWAYS illegal to drive while impaired by any substance, including opioids, benzodiazepines, and sedating medications, in ALL states. As laws can change management coordinator time, one should review the state government website to understand the laws governing driving while on prescription medications, such as opioids. Safe Storage of opioids It is importance to maintain safe storage of controlled substances, and keep these medications locked and secured from family members or children. RISKS of Narcotic Medications We are concerned about your overall health and the potentially negative effects of narcotic medications on it. In addition to lack of effectiveness for some types of pain, the side effects of narcotics include nausea, constipation, upset stomach, sexual dysfunction, depression, fatigue, increased sensitivity to pain, addiction, and drug tolerance. EXTENDED RECOVERY PATIENT INFORMATION What is extended recovery? Extended recovery is ordered by your doctor when the doctor thinks you need more time to safely recover. This recovery may be from an outpatient surgery or a radiology procedure. Your doctor expects that you will need more than 4-6 hours. When would I need extended recovery? The most common reasons for an extended recovery include: Not being able to urinate. Not being able to keep down solid foods or liquids. You need an IV (giving you fluids into a vein). Uncontrolled pain. Unexpected surgical bleeding. Abnormal vital signs such as blood pressure or heart rate. Not being able to safely move around. Cardiac or respiratory monitoring. (Keeping track of your heart and breathing). Your doctor will monitor your recovery and determine a plan of care. Thank you for choosing [facility] for your care! Department of Otolaryngology documented in this encounter Progress Notes * Calli Denton PA-C - 01/13/2024 3:15 PM CDTAddended by: CALLI DENTON on: 01/14/2024 07:35 AM Modules accepted: Orders * Alina Navarro MD - 01/13/2024 3:15 PM CDT Otolaryngology Clinic Consult Note 01/13/2024 CC: Nasal obstruction HPI: Daniel Maynard is a 33 y.o. male who is otherwise healthy who comes into the ENT Clinic todayto discuss a crooked nose and nasal obstruction. He has never had surgery to this area before and does not take any daily medications. Patient reports that when he was about 7 years old he fell off of a bunk bed and broke his arm. He feels he may have injured his nose of the same time, but no intervention was performed at that time. Since he was about 15 years old, he noticed his nose started to be crooked appearing and he noticed trouble breathing through his nose, particularly from the left side. He does also have seasonal allergies for which he has taken Flonase for 4-6 weeks at a time. This provides some relief but does not completely relieve his nasal obstruction. He does not have any particular aesthetic concerns, though he would like his nose to no longer be crooked if possible. His major goal is to restore nasal breathing and to improve his resonance somewhat, as he feels he hasa slightly hyponasal voice. A tertiary goal would be to improve the crooked appearance of his nose,though aesthetics are not a priority for him. Denies history of trauma or prior surgery to the area. PMH: No relevant PMH Surgical History: Appendectomy at age 15, uncomplicated Social history: Nonsmoker, works from home in [employer], used to sing in the choir at [employer] No Known Allergies Social History Socioeconomic History Marital status: Not on file Spouse name: Not on file Number of children: Not on file Years of education: Not on file Highest education level: Not on file Occupational History Not on file Tobacco Use Smoking status: Never Smokeless tobacco: Never Vaping Use Vaping status: Never Used Substance and Sexual Activity Alcohol use: Not on file Drug use: Not on file Sexual activity: Not on file Other Topics Concern Not on file Social History Narrative Not on file Social Determinants of Health Financial Resource Strain: Not on file Food Insecurity: Not on file Transportation Needs: Not on file Intimate Partner Violence: Not on file Housing Stability: Not on file No family history on file. ROS: 12 point review of systems is negative unless noted in HPI. PHYSICAL EXAM: Ht 5' 11 (1.803 m) Wt 79.4 kg (175 lb) BMI 24.41 kg/m?? General: Awake, alert, NAD Head: normocephalic, atraumatic Face: symmetrical, CN VII intact bilaterally (HB 1), no swelling, edema, or erythema. Sensation V1-V3 intact and equal bilaterally. Eyes: EOMI without spontaneous or gaze evoked nystagmus, PERRL, clear sclera Ears: Normal external ears Nose: The nasal bones are deviated to the left and he has a reverse C deformity of the nasal dorsumand mid-vault. He has quite severe leftward septal deviation, a prominent right anterior septal spur, and bilateral internal nasal valve collapse. Caudal septal deformity to the left. He has adequatetip support, tip is slightly over-rotated. The posterior left nasal cavity is not visible as the dorsal septum is in contact with the inferior turbinate and upper lateral cartilage due to severe deviation. Right internal nasal valve is collapsed as the upper lateral cartilage is deviated toward theleft with the septum, and the right nasal bone is collapsed toward the left. Mouth/oropharynx: moist, no ulcers, no jaw or tooth tenderness, tongue midline and symmetric, Mallampati I, tonsils and uvula normal Neck: no LAD, trachea midline Pulm: normal work of breathing, no stridor or stertor CV: extremities warm and well-perfused Neuro: cranial nerves 2-12 grossly intact ASSESSMENT AND PLAN: Daniel Maynard is a 33 y.o. male who is otherwise healthy seen in consultation today for nasal obstruction and leftward nasal and septal deviation causing a reverse-C deformity. His symptoms of nasal obstruction and obvious external deviation have been longstanding since he was about 15 years old and he would be interested in surgical intervention to correct these. His nasal obstructive symptomshave been refractory to maximal medical management with intranasal steroid. He has nasal and septaldeviation causing broad leftward deviation of the nasal septum and narrowing of the bilateral internal nasal valves. Septoplasty alone would not be appropriate to relieve his symptoms as the structures supporting the septum under are also deviated. Therefore we would recommend surgical interventionwith an open septorhinoplasty. Risks, benefits, and alternatives were discussed, and he would like to proceed. We will arrange this at his convenience and remain available with further questions or concerns. Patient seen and discussed with staff, Dr. Pamela Navarro MD Otolaryngology, Head & Neck Surgery Resident * Mayank Santiago MD - 01/13/2024 3:15 PM CDT This office note has been dictated. * Mayank Santiago MD - 01/13/2024 12:00 AM CDT NAME: DANIEL MAYNARD CSN: [id number] CLINIC NOTE DATE OF SERVICE: 01/13/2024 : 1990 HISTORY: Mr. Maynard is in to see us today on referral from his primary care doctor, Dr. Szymanski in the [place] area. He has had lifelong nasal obstruction. He fell from a bunk bed as a youth. He does not recall a nasal injury with that. He is profoundly obstructed left worse than right, but bothsides have elements of obstruction. Dr. Navarro put in a longer more comprehensive note, the consultat ion with me was more than 30 minutes in duration. He has an interest in functional improvement, aesthetics were not his primary concern. Our exam shows mild facial asymmetry. The maxillary midline is not directly beneath the anterior skull base. He has average thickness of skin. There is marked collapse of the right mid vault. The osseous frame is deviated markedly to the left. The nasal base has a caudal septal deformity to the left carrying the bridge with it. One cannot see posteriorly into the left nasal cavity because the septum is in contact with the undersurface of the upper lateral cartilage and the inferior turbinate, creating more than 90% obstruction on the left side. On the right side, there is an inferior septal spur off the maxillary crest, but the airway obstruction on the right is primarily due to the medializ ation of the right upper and lateral cartilage and supporting this area does improve the airway some. The rest of his exam is as noted by Dr. Navarro. ASSESSMENT: Nasal septal deformity with nasal airway obstruction. RECOMMENDATION: Septorhinoplasty. With a marked deviation of his nasal vault, I think it is impossible to correct the airway without the septorhinoplasty due to the medialization of the right mid vault and the dorsal fixation of the septum to the left. I discussed the risks and benefits including epistaxis, infection, need for secondary surgery, likelihood of some residual deformity, sensory fleming es, and etc. If he wants to proceed with surgery, I would be happy to help him and we will get a prior authorization out today. To his insurance company, to whom it may concern, Mr. Maynard has asked that we reach out to you regarding his consultation with us for chronic nasal obstruction. He does not have nasal allergies. He has tried Flonase for protracted period of time from weeks to months without any improvement, so his allergic picture is very limited. He sustained nasal trauma in youth and this may be the desmond of his nasal deformity. He has near total obstruction on the left and increased obstruction on the right, but not total obstruction. His whole nasal vault is canted to the left and the septum is deviated to the left with constant contact between the undersurface of the upper lateral cartilage and septum and the anterior portion of the inferior turbinate. On the right side, the nasal bone and upperlateral cartilage are collapsed and obstructing the airway. A septoplasty alone would be inappropriate and inadequate to restore his airway. The same is true of a vestibular stenosis repair. Because of the nasal framework is so distorted to the left, he needs the right nasal bone and upper lateral cartilage brought back to a more normal anatomic position to open the right nasal airway. The dorsumof the nose needs to be moved to the right in order to move the septum back to the midline as the septal deformity extends all way to the nasal vault and I cannot straighten the septum without putting the nasal vault back in the midline and there is no way to relieve the contact between the septum and the upper lateral cartilage at the apex of the internal nasal valve without shifting the vault of the nose to the right. Therefore, septorhinoplasty, CPT code 19651 is the only appropriate consideration for him. A septoplasty alone would be inadequate to correct his airway difficulties. He wouldappreciate affirmation that this is a covered service with you before proceeding with surgery. If you have any questions, do not hesitate to contact us. Sincerely, To Dr. Szymanski, his family doctor, Dear Dr. Szymanski, I had the pleasure of meeting Mr. Maynard today. I think he needs a significant nasal reconstruction in order to reestablish his airway. With this would be done on an outpatient basis, we would keep you appraised of his outcome. We are flattered that you suggested that he visit with us. Best Regards MAYANK SANTIAGO MD PAH/AQS /[id number] documented in this encounter Plan of Treatment Upcoming Encounters Date Type Department Care Team (Late st Contact Info) Description 03/23/2024 3:15 PM CDT Appointment Specialty Center [address] [place] [address]. [place] [address] Mayank Santiago MD [address] [place] [id number] documented as of this encounter Visit Diagnoses Diagnosis Acquired deflected nasal septum- Primary Deviated nasal septum Acquired deformity of nose Nasal obstruction Other diseases of nasal cavity and sinuses documented in this encounter
--- OUTSIDE RECORDS SUMMARY | 2024-03-19 06:44 | XMS_ITS | Encounter Summary ---
Author Organization [facility] Address [address] [place] [address] Care Team Providers Care Wringer Operator Name Role Phone Unavailable Primary Care Provider Unavailabl e Reason for Visit * Reason Comments Post-Op Problem Encounter Details Date Type Department Care Team (Late st Contact Info) Description 03/19/2024 Nurse Triage Careline [address] [place], [place] [address] Unknown, Physician [address] [place], [place] [id number] Post-Op Problem Social History Tobacco Use Types Packs/Day Years Used Date Smoking Tobacco: Never Smokeless Tobacco: Never Sex and Gender Information Value Date Recorded Sex Assigned at Not on file Gender Identity Not on file Sexual Orientation Not on file documented as of this encounter Nursing Notes * Rajni Perry RN - 03/19/2024 5:13 AM CDT Verified patient identity: Yes Situation/Background (brief explanation of current symptoms/situation): Pt states they have been experiencing a nosebleed since 0330, states, it's been a pretty constant stream of blood. Pt states their ears feel sloshy, so I wonder if some of the blood is in there. States they did a sinus rinse yesterday evening, and I wonder if that's the cause of this. Reviewed with patient pertinent medical history (as it related to the call): Yes Reviewed with patient pertinent medications (as they relate to call): Yes Reviewed with patient pertinent allergies (as they relate to call): Yes Reason for Disposition [1] Bleeding present > 30 minutes AND [2] using correct method of direct pressure Protocols used: [id number] Discussed Go To ED Now disposition, care advice, and 911 s/s with patient. Patient verbalized understanding, denies additional questions or concerns at this time, and agrees with plan. Advised patient/caller to call back CareLine if there are further questions or concerns or to be seen if situation becomes emergent. The CareLine is available 19/05. Rajni Plata RN Careline 5:18 AM 03/19/2024 * Chante Irwin - 03/19/2024 5:12 AM CDT Verified patient using 3 identifiers: Yes Caller reports the following red flag symptoms: post op nosebleed Plan: Transferred directly to a CareLine RN. documented in this encounter Plan of Treatment Upcoming Encounters Date Type Department Care Team (Late st Contact Info) Description 03/23/2024 3:15 PM CDT Appointment Specialty Center 401 Otolaryngology 401 [facility]. [place], [place] [id number] Gus Santiago MD [address] [place] [address] documented as of this encounter Visit Diagnoses Not on filedocumented in this encounter
--- OUTSIDE RECORDS SUMMARY | 2024-03-19 06:44 | XMS_ITS | Clinical Summary ---
Author Organization [facility] Address [address] [address] Care Team Providers Care Director Of Enterprise Applications Name Role Phone Unavailable Primary Care Provider Unavailabl e Source Comments You are receiving this document as you are listed as the primary care provider,follow-up provider, or the patient has been referred to you for consultation.This is in compliance with the Medicare and[facility] EHR Incentive Program,which states Providers who transition their patient to another setting of careor provider of care or refers their patient to another provider of care shouldprovide summary care record for each transition of care or referral. [address] Allergies Active Allergy Reactions Criticality Noted Date Comments Penicillin G Rash 03/16/2024 Medications Medication Sig Dispensed Refills Start Date End Date Status oxyCODONE (ROXICODONE) 5 MG immediate release tablet Take 1 Tablet (5 mg) by mouth every 4 hours as needed for Pain for up to 15 doses. 15 Tablet 03/16/2024 Active clindamycin (CLEOCIN) 300 MG capsule Take 1 Capsule (300 mg) by mouth three times a day. 30 Capsule 03/16/2024 Active cefpodoxime (VANTIN) 200 MG tablet Take 1 Tablet (200 mg) by mouth two times a day for 7 days. 14 Tablet 03/16/2024 03/16/2024 Discontinued oxyCODONE-acetami nophen (PERCOCET) 5-325 MG tabletIndications :Pain Take 1-2 Tablets by mouth every 6 hours as needed for Pain (severe pain). 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 [address] Unknown, Physician Post-Op Problem 03/16/2024 7:22 AM CDT Anesthesia Event [facility] Surgery [address] [address] Santino Morton MD Loushin, Michael K, MD 03/16/2024 7:20 AM CDT - 03/16/2024 11:45 AM CDT Surgery [facility] Surgery [address] [address] Gus Santiago MD SEPTORHINOPLASTY 03/16/2024 5:32 AM CDT - 03/16/2024 1:52 PM CDT Hospital Encounter [address] [address] Gus Santiago MD Pain (Primary Dx) Discharge Disposition: Home 01/13/2024 3:15 PM CDT [facility] Visit [facility] [address] [place] [address] Gus Santiago MD Acquired deflected nasal septum (Primary Dx); Acquired deformity of nose; Nasal obstruction from Last 3 Months Social History Tobacco Use Types Packs/Day Years Used Date Smoking Tobacco: Never Smokeless Tobacco: Never Tobacco Cessation:Counseling Given: Not Answered Sex and Gender Information Value Date Recorded Sex Assigned at Not on file Gender Identity Not on file Sexual Orientation Not on file Last Filed Vital Signs Vital Sign Reading [...] oz) 03/16/2024 6:05 A M CDT Height 180.3 cm (5' 11) 01/13/2024 3:25 PM CDT Body Mass Index 25.55 01/13/2024 3:25 PM CDT Plan of Treatment Upcoming Encounters Date Type Department Care Team (Late st Contact Info) Description 03/23/2024 3:15 PM CDT Appointment [facility] [address] [place] [address] Gus Santiago MD [address] [place] [address] Health Maintenance Due Date Last Done Comments Hep C Screening (Preventive Services) 1990 HIV Screening (Preventive Services) 2006 Adult Preventive Visit 2008 DTaP/Tdap/Td (1 - Tdap) 2009 HepB (1) 2009 COVID-19 Vaccine ( season) 2023 12/25/2021, 03/04/2021, 02/12/2021 Zoster/Shingles (1 of 2) 2040 Influenza Completed 08/20/2023, 11/0 12/2021, 12/25/2021, Additional history exists HPV Vaccine Aged Out No longer eligi ble based on patient's age to complete this topic HepA Aged Out No longer eligi ble based on patient's age to complete this topic Hib Aged Out No longer eligi ble based on patient's age to complete this topic IPV (Polio) Aged Out No longer eligi ble based on patient's age to complete this topic MCV4 Aged Out No longer eligi ble based on patient's age to complete this topic Pneumococcal Aged Out No longer eligi ble based on patient's age to complete this topic Medical Devices Implanted Type Area Hook And Eye Machine Operator Device Identifier Shelf Expiration Date Model / Serial / Lot Splint Nasal [address] [employer] - [id number] Implanted:Qty: 1 on 03/16/2024 by Gus Santiago MD at [facility] Same Day Surgery DEVICE N/A: NOSE [employer] 08/05/2028 [id number] / / [id number] Description:nares Procedures Procedure Name Priority Date/Time Associated Diagnosis Comments SEPTORHINOPLASTY 03/16/2024 7:14 AM CDT 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
--- NOTE | 2024-03-19 06:50 | PC.NURSE ---
Waiting for on-call ENT to call back, has been paged at [phone]. Pt has been updated. Right nare continues to bleed, second mustache dressing changed and pt is just holding tissues below his nose. Pt states feeling a lot of pressure.
== END 2024-03-19 07:15 | disposition home or self-care (01) ==
PROVIDERS: Emergency Provider Family Medicine; PCP Family Medicine
DX: R04.0 Epistaxis (principal)
CPT/HCPCS: 99282; 99283